=== PATIENT | male | born 1985 ===

== ENCOUNTER 2018-10-20 13:36 | Day surgery (SDC) | payer MEDICARE, OTHER ==
[2018-10-10 12:46] VITALS: BMI 30.4
[2018-10-20 14:20] VITALS: RESP 16
[2018-10-20] MEDS ORDERED: Lidocaine Hydrochloride 0 ML INJ ONE (14:49)
[2018-10-20] MEDS ORDERED: Bupivacaine 0.25% 20 ML INJ IJ ONE (14:49)
[2018-10-20] MEDS ORDERED: Lidocaine/Epinephrine 1% 1:100000 10 ML IJ ONE (15:30)
--- NOTE | 2018-10-20 16:41 | PCM.SURG1 ---
Surgeon's Initial Post Op Note - Surgeon's Notes Surgeon: David Judd MD Boiler Reliner: Vianca PGY3 Pre-Operative Diagnosis: Lipoma of back *2 Operative Findings: lipomas of back *2 Post-Operative Diagnosis: Lipoma of back *2 Operation Performed: Excision of Lipomas of back *2 Specimen/Specimens Removed: back lipoma Estimated Blood Loss: EBL {In ML}: 10 Date of Surgery/Procedure: 10/20/18 Time of Surgery/Procedure: 16:40
[2018-10-20 17:12] VITALS: BP 91/71; PULSE 83; TEMP 97.7; O2SAT 97
--- NOTE | 2018-11-01 07:42 | OP ---
PROCEDURE DATE: 10/20/2018 SURGEON: David Judd MD [employer]: Dr. Coley. ANESTHESIA: Local 1% lidocaine with epinephrine. PREOPERATIVE DIAGNOSIS: Lipomas of the back. POSTOPERATIVE DIAGNOSIS: Lipomas of the back. PROCEDURE: Excision of two lipomas of the upper back. DESCRIPTION OF OPERATION: The patient was placed in a prone position. The patient was noted to have a large lipoma in the left scapular area as well as a smaller lipoma in the lower portion of the back. The larger area was marked preoperatively. The skin overlying the mass was anesthetized with 1% lidocaine, and a transverse incision was made, taken down through the full thickness of the skin. Upon reaching the subcutaneous level, a lobulated mass was identified which pass through fibrous septations and each lobulation was freed from its septated compartment and delivered into the wound with the deep attachments being detached finally with cautery. The mass was yellow with the gross appearance of a lipoma and measured approximately 12 cm in longest diameter. The operative site was examined for hemostasis and closure was performed with subcuticular running suture of 4-0 Monocryl and Steri-strips. Attention was then turned to the smaller lipoma which was located in the mid lower back. The skin overlying this was infiltrated with 1% lidocaine and transverse incision was made and a 2 cm yellow mass with the gross appearance of a lipoma was excised with blunt dissection. The operative site was examined for hemostasis and closure was performed with running subcuticular suture of 4-0 Monocryl and Steri-strips. Dry sterile dressings were applied. The patient tolerated the procedure well and transferred to day stay in stable condition. Estimated blood loss for the procedure was 10 mL. David Judd MD
== END 2018-10-20 17:07 | disposition home or self-care (01) ==
LOC: MERGE 13:36 → C.SDS 13:36
PROVIDERS: ATTEND Specialist
DX: D17.1 Benign lipomatous neoplasm of skin and subcutaneous tissue of trunk (principal)